=== PATIENT | female | born 1985 | race Caucasian/White ===

== ENCOUNTER 2018-09-13 17:03 | Emergency (ER) | payer OTHER ==
[~2018-09-13] VITALS: Ht 152.4 cm; Wt 54.4 kg
[2018-09-13 17:29] LABS: BASOPHIL % 0.7 % (0-2)
[2018-09-13 17:30] LABS: PLATELET COUNT 440 x10^3mcL (130-400); RED CELL DISTRIBUTION WIDTH 14.6 % (11.5-14.5)
[2018-09-13 17:49] LABS: CARBON DIOXIDE 29.4 mmol/L (21-32); CHLORIDE SERUM 103 mmol/L (98-107); CREATININE SERUM 0.8 mg/dL (0.6-1.0); GFR1 > 60 mL/min; GLUCOSE SERUM 102 mg/dL (74-106); POTASSIUM SERUM 3.7 mmol/L (3.5-5.1); SODIUM SERUM 140 mmol/L (136-145)
[2018-09-13 17:53] LABS: ALKALINE PHOSPHATASE 55 U/L (46-116); ALT/SGPT 20 U/L (14-59); AST/SGOT 15 U/L (15-37); BILIRUBIN TOTAL 0.25 mg/dL (0.20-1.00); LIPASE 240 IU/L (73-393); TOTAL PROTEIN, SERUM 7.8 g/dL (6.4-8.2)
[2018-09-13 19:42] VITALS: BP 131/82
== END 2018-09-13 19:43 | disposition home or self-care (01) ==
LOC: ED 17:03
DX: Z13.89 Encounter for screening for other disorder (principal); R42 Dizziness and giddiness; R10.9 Unspecified abdominal pain; R11.2 Nausea with vomiting, unspecified; F17.210 Nicotine dependence, cigarettes, uncomplicated
CPT/HCPCS: 36415; Q0092